=== PATIENT | female | born 1935 | race Caucasian/White ===

== ENCOUNTER 2024-10-05 18:41 | Emergency (ER) | payer MEDICARE, BC, SELFPAY ==
[2024-10-05 19:30] VITALS: BP 121/58; PULSE 58; RESP 19; TEMP 36.6; O2SAT 100; BMI 20.2
[2024-10-05 19:51] LABS: Basophils % (Auto) 1 % (0-2.5); Eosinophils # (Auto) 0.1 Thou/mm3 (0.0-0.5); Eosinophils % (Auto) 2 % (0-10); Hematocrit 24.8 % (36.0-46.0); Hemoglobin 7.8 g/dL (12.0-16.0); Immature Granulocytes % (Auto) 1 % (0-0); Immature Granulocytes Auto 0.06 Thou/mm3 (0.00-0.00); Lymphocytes # (Auto) 1.4 Thou/mm3 (1.0-4.8); Lymphocytes % (Auto) 18 % (10-50); Mean Corpuscular HGB Conc 31.5 g/dl (31.0-37.0); Mean Corpuscular Hemoglobin 29.9 pg (25.0-35.0); Mean Corpuscular Volume 95 fL (80-100); Monocytes # (Auto) 0.6 Thou/mm3 (0.0-0.8); Monocytes % (Auto) 7 % (0-12); Neutrophils # (Auto) 5.5 Thou/mm3 (1.8-7.7); Neutrophils % (Auto) 71 % (37-80); Nucleated Red Blood Cell % 0 /100 WBC (0); Platelet Count 337 Thou/mm3 (140-440); RDW Standard Deviation 56.2 fL (36.4-46.3); Red Blood Count 2.61 Miln/mm3 (4.00-5.20); White Blood Count 7.7 Thou/mm3 (3.6-11.0)
[2024-10-05 20:07] LABS: Alanine Aminotransferase < 7 U/L (10-49); Albumin, Serum 3.9 gm/dL (3.4-4.8); Alkaline Phosphatase 183 U/L (46-116); Anion Gap 9 (7-16); Aspartate Amino Transferase 67 U/L (0-34); BUN/Creatinine Ratio 34 Ratio (12-20); Bilirubin,Total 0.5 mg/dL (0.3-1.2); Blood Urea Nitrogen 48 mg/dL (9-23); Calcium 8.6 mg/dL (8.3-10.6); Calcium (Corrected) 8.7 mg/dL (8.5-10.1); Carbon Dioxide 19.3 mMol/L (20.0-31.0); Chloride 113 mMol/L (98-107); Creatinine (Component) 1.4 mg/dL (0.6-1.3); Estimated Creatinine Clearance 18.6 mL/min (>60); Glucose 117 mg/dL (74-106); Magnesium 2.1 mg/dL (1.6-2.6); Osmolality,Calculated 294 (275-295); Potassium 4.2 mMol/L (3.4-5.1); Sodium 141 mMol/L (136-145); Total Protein 5.9 gm/dL (5.7-8.2); eGFR 36 See Note
[2024-10-05 20:39] LABS: Collection Type, Urine Clean Catch; Squamous Epithelial Cell,Urine 0 /hpf (0-5)
[2024-10-05 20:57] LABS: Bilirubin,Urine Negative (Negative); Blood,Urine 3+ (Negative); Clarity,Urine Turbid (Clear/Hazy); Color,Urine Yellow (Lt Yel-Yel); Glucose, Urine Negative (Negative); Ketones,Urine Negative (Negative); Leukocyte Esterase,Urine Positive (Negative); Nitrite,Urine Positive (Negative); Protein,Urine 1+ (Neg - Trace); RBC,Urine 1181 /hpf (0-3); Specific Gravity,Urine 1.013 (1.001-1.035); Urobilinogen,Urine Negative mg/dL (0.0-1.0); WBC,Urine 130 /hpf (0-5)
--- NOTE | 2024-10-05 21:39 | PD.EDFMALE ---
ED Female Urogenital RME/HPI General Chief complaint: Urogenital-Female Stated complaint: BLOOD IN UROSTOMY BAG PER FAMILY Time Seen by Provider: 10/05/24 18:50 Arrival date/time: 10/05/24 18:41 RME / HPI RME / HPI Narrative: This section includes all my notes and documentations, including HPI, PE, and ED course. Nicholas Tanner MD HPI: 89-year-old female here to be evaluated with several days of blood in the urine. Family is present. Concerned due to severe anemia in the past needing blood transfusion. No fever or chills. No nausea or vomiting. Eating well. No unusual fatigue or malaise. No chest pain. No other complaints. ROS: Gastrointestinal: negative except as documented in HPI. Genitourinary: negative except as documented in HPI. Musculoskeletal: negative except as documented in HPI. Skin: negative except as documented in HPI. Neurological: negative except as documented in HPI. Physical Exam: General: Alert. No acute distress. Eyes: Conjunctivae and lids clear. ENT: No nasal congestion. Neck: Supple. Heart: RRR. Lungs: No respiratory distress. Good air movement. No rhonchi, wheezing, rales. Abdomen: Soft and nontender. Normal bowel sounds. No distension. No rebound or guarding. Skin: Warm and dry. Neuro: Alert and oriented X 1. Cranial Nerves II-XII grossly intact. No peripheral motor deficits. Blood tests and urine tests remarkable for Hgb 7.8 and hematuria. Will wait for urine culture. Recommended more care with PCP. Based on my best medical judgment, made decision no further evaluation or treatment indicated at this time.? Patient (and family) understands and agrees to the discharge instructions customized and printed, see below. Discharge instructions from Dr. Tanner: 1. After evaluation, we have severe anemia. Hemoglobin was 7.8 today. Blood transfusion is needed if hemoglobin < 7. 2. And there is a lot of blood in the urine. 3. See a private doctor on 10/07/2024 for recheck. Ask to review all test results, to make sure you receive all necessary follow-ups and monitoring, including urine culture results from today and repeat hemoglobin level. Ask for help figure out the cause of the severe anemia and blood in the urine. Will need more workup, including referrals to see specialists such as urologist and chief accountant. 4. Seek immediate medical care with worsening or with any concerns. Nicholas Tanner MD Related Data Home Medications ?Medication ?Instructions ?Recorded ?Confirmed amlodipine 5 mg tablet 5 mg PO BID 10/28/23 04/15/24 pantoprazole 40 mg tablet,delayed 40 mg PO QDAY 10/28/23 04/15/24 release calcitriol 0.25 mcg capsule See Rx Instructions .Route .COMPLEX 04/15/24 04/15/24 ferrous sulfate 220 mg (44 mg 220 mg PO BID 04/15/24 04/15/24 iron)/5 mL oral elixir hydrochlorothiazide 25 mg tablet 35 mg PO BID 04/15/24 04/15/24 Previous Rx's ?Medication ?Instructions ?Recorded atorvastatin 80 mg tablet 80 mg PO HS #90 tabs 08/08/23 clopidogrel 75 mg tablet 75 mg PO QDAY #90 tabs 08/08/23 Allergies Allergy/AdvReac Type Severity Reaction Status Date / Time No Known Allergies Allergy Verified 10/05/24 18:42 Course Quality Measures none Orders Category Date Time Status CBC Stat Lab 10/05/24 19:30 Completed CMP [Comprehensive Metabolic Panel] Stat Lab 10/05/24 19:30 Completed Magnesium Stat Lab 10/05/24 19:30 Completed UA [Urinalysis] Stat Lab 10/05/24 20:30 Completed Urine Culture Stat Lab 10/05/24 21:40 Ordered Vital Signs Vital signs: Vital Signs Temperature 97.8 F 10/05/24 19:30 Pulse Rate 58 L 10/05/24 19:30 Respiratory Rate 19 10/05/24 19:30 Blood Pressure 121/58 L 10/05/24 19:30 Pulse Oximetry (%) 100 10/05/24 19:30 Oxygen Delivery Method Room Air 10/05/24 19:30 Urogenital - Female Patient data External records reviewed:: [facility] previous records Clinical information provided by:: patient and family Social determinants that could affect healthcare access:: none Patient has the following chronic illnesses:: See chart How is presenting disease/condition affected by chronic disease/condition?: exacerbated by Evaluation data The following diagnostics were reviewed and interpreted by me:: lab results Lab and/or radiology exams considered but not ordered:: None Interpretation Summary: Anemia and hematuria Medications / Prescriptions Medications or Prescriptions considered but not ordered:: None Medication administrations:: None Consultations Consultation(s) initiated? (list below): No Diagnosis Urogenital Female Differential Diagnosis: urinary tract infection and cystitis Most likely diagnosis given after review of the tests above:: Anemia and UTI Admission Indicated Admission indicated?: not indicated Explain why admission is indicated or not indicated:: No admission criteria Admission Request Was there a request for admission?: No Disposition Plan Disposition Plan: Discharge Discharge Attestation Discharge Attestation: The patient and all family members were given an opportunity to ask questions and understood the discharge instructions. Discharge instructions specifically effects, indications for sooner follow up or return to the emergency department, and the expected course of current diagnosis. Patient condition: Stable Discharge Plan Plan Patient Disposition: HOME (Self Care) Prescriptions/Referrals Prescriptions/Med Rec: No Action amlodipine 5 mg Tablet 5 mg PO BID pantoprazole 40 mg tablet,delayed release (DR/EC) 40 mg PO QDAY clopidogrel 75 mg Tablet 75 mg PO QDAY Qty: 90 0RF atorvastatin 80 mg tablet 80 mg PO HS Qty: 90 0RF ferrous sulfate 220 mg (44 mg iron)/5 mL elixir 220 mg PO BID Patient Comments: TAKE 5 ML BY MOUTH TWICE DAILY calcitriol 0.25 mcg capsule See Rx Instructions .ROUTE .COMPLEX Patient Comments: TAKE 1 CAPSULE BY MOUTH 3 TIMES WEEKLY Rx Instructions: 0.25 mcg orally hydrochlorothiazide 25 mg tablet 35 mg PO BID Patient Comments: TAKE 1 TABLET BY MOUTH TWICE DAILY Referrals: Flavio August MD [Primary Care Provider] - In 1 week Problem List Clinical Impression: Severe anemia, Hematuria Patient/Caregiver Discharge Instructions Discharge Activity: activity as tolerated Education Materials: ED Anemia Type Not Specified, ED Hematuria Additional Instructions: Discharge instructions from Dr. Tanner: 1. After evaluation, we have severe anemia. Hemoglobin was 7.8 today. Blood transfusion is needed if hemoglobin < 7. 2. And there is a lot of blood in the urine. 3. See a private doctor on 10/07/2024 for recheck. Ask to review all test results, to make sure you receive all necessary follow-ups and monitoring, including urine culture results from today and repeat hemoglobin level. Ask for help figure out the cause of the severe anemia and blood in the urine. Will need more workup, including referrals to see specialists such as urologist and chief accountant. 4. Seek immediate medical care with worsening or with any concerns. Print Language: Setswana Stand Alone Forms: [employer] Award Info., Patient Portal Info Letter
[2024-10-05 21:46] VITALS: BP 112/53; PULSE 60; RESP 18; TEMP 37.2; O2SAT 99
== END 2024-10-05 21:47 | disposition home or self-care (01) ==
PROVIDERS: Emergency Provider Emergency Medicine; PCP Internal Medicine
DX: D64.9 Anemia, unspecified (principal); R31.9 Hematuria, unspecified
CPT/HCPCS: 36415; 80053; 81001; 83735; 85025; 87086; 99283

== ENCOUNTER 2024-11-04 17:28 | Inpatient (IN) | payer MEDICARE, BC, SELFPAY ==
[2024-11-04] VITALS (10 sets, daily range): BP systolic 112–135; BP diastolic 42–60; PULSE 53–76; RESP 17–25; TEMP 36.7–37; O2SAT 88–99
--- NOTE | 2024-11-04 18:46 | XR_ITS ---
Examination: AP chest single view Technique: AP portable sitting chest single view Exam date and time: November 04, 2024 1905 hrs. Comparison May 31, 2024 Indications: Shortness of breath today Findings: Prominent CHF Enlarged cardiac contour with prominent vascular congestion and extensive perihilar edema Transvenous dual-chamber bipolar cardiac leads stable position Severe thoracolumbar dextroscoliosis IVC filter Severe osteopenia Impression: Prominent CHF Consider superimposed pneumonia right lung
--- NOTE | 2024-11-04 18:46 | EKG_ITS ---
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
[2024-11-04] MEDS: FUROSEMIDE INJ 10 MG/ML 4ML VIAL 20 MG IVP (19:01)
[2024-11-04] MEDS: NITROGLYCERIN OINT 2% 1 INCH PACKET 0.5 INCH TOP (19:03)
[2024-11-04] MEDS: MORPHINE SULF INJ 10 MG/ML VIAL IVP (19:04)
--- NOTE | 2024-11-04 19:05 | EDNOTE_ITS ---
ED SOB =RME/HPI General Chief Complaint: Shortness of Breath/Dyspnea Stated Complaint: SHORTNESS OF BREATH Time Seen by Provider: 11/04/24 18:38 Arrival date/time: 11/04/24 17:28 RME / HPI RME / HPI Narrative: This section includes all my notes and documentations, including HPI, PE, and ED course. Nicholas Tanner MD HPI: 89-year-old female here to be evaluated with multiple concerns. Great niece who is her career development facilitator is present. They report several days of worsening cough and shortness of breath. No productive cough. No obvious fever. And worsening generalized weakness and fatigue and malaise. No other complaints. ROS: All negative except as documented in HPI. Physical Exam: General: Alert and oriented. Appears malaise noted. Patient is hypoxic needing oxygen. Eyes: Conjunctivae and lids clear. EOMI. PERRL. ENT: No nasal congestion. Pharynx normal. Tympanic membrane normal bilaterally. Neck: Supple. No carotid bruit. No JVD. Heart: RRR. Lungs: Mild respiratory distress. Moderately decreased air movement with rales. Abdomen: Soft and nontender. Normal bowel sounds. No distension. No rebound or guarding. Back: No CVA tenderness. Legs: No clubbing, cyanosis, edema. Skin: Warm and dry. Neuro: Alert and oriented X 3. Cranial Nerves II-XII grossly intact. No peripheral motor deficits. I reviewed all diagnostic test results. My interpretation of the EKG is paced rhythm. My interpretation of the chest x-ray is increased vascular congestion and infiltrates. My review of the chest CT report is pleural effusions and pneumonia and metastatic bone disease. Blood tests remarkable for Hgb 5.3, D-dimer > 3820, Cr 1.2, BNP 388. UA showed leukocyte esterase, RBC, WBC, bacteria, and yeast. At this point, diagnoses include: Acute respiratory failure with hypoxia, Pneumonia, CHF (congestive heart failure), Severe anemia, Metastasis to bone, Bacterial UTI, Yeast UTI Treatment here included oxygen and Lasix and morphine and topical NTG and Rocephin and Zithromax. Significant improvement not noted. I discussed the case with Dr. August. About the presentation and exam and diagnostics and treatments here. And need of further care in the hospital. Will accept the patient. Nicholas Tanner MD Related Data Home Medications ?Medication ?Instructions ?Recorded ?Confirmed amlodipine 5 mg tablet 5 mg PO BID 10/28/23 04/15/24 pantoprazole 40 mg tablet,delayed 40 mg PO QDAY 10/28/23 04/15/24 release calcitriol 0.25 mcg capsule See Rx Instructions .Route .COMPLEX 04/15/24 04/15/24 ferrous sulfate 220 mg (44 mg 220 mg PO BID 04/15/24 04/15/24 iron)/5 mL oral elixir hydrochlorothiazide 25 mg tablet 35 mg PO BID 04/15/24 04/15/24 Previous Rx's ?Medication ?Instructions ?Recorded atorvastatin 80 mg tablet 80 mg PO HS #90 tabs 08/08/23 clopidogrel 75 mg tablet 75 mg PO QDAY #90 tabs 08/08/23 Allergies Allergy/AdvReac Type Severity Reaction Status Date / Time No Known Allergies Allergy Verified 10/05/24 18:42 Course Quality Measures none Orders Category Date Time Status Bedside COVID-19 Antigen Test NOW Care 11/04/24 18:46 Active Bedside Influenza A&B Antigen Test NOW Care 11/04/24 18:46 Completed COVID-19 Screening Questionnaire NOW Care 11/05/24 03:23 Active Decision to Admit X1 Care 11/05/24 03:23 Active EKG (ED ONLY) *Do not use* NOW Care 11/04/24 18:46 Completed Saline [Insert IV] NOW Care 11/04/24 18:44 Active Transfuse,blood/blood products NOW Care 11/04/24 20:[address] angio chest abdomen pelvis Stat Exams 11/04/24 20:17 Taken EKG (ED Only) Stat Exams 11/04/24 18:46 Draft XR chest 1V portable Stat Exams 11/04/24 18:46 Completed ABG [Arterial Blood Gas] Stat Lab 11/04/24 20:33 Completed BNP [B-Type Natriuretic Peptide] Stat Lab 11/04/24 19:12 Completed CBC Stat Lab 11/04/24 19:12 Completed CMP [Comprehensive Metabolic Panel] Stat Lab 11/04/24 19:12 Completed D-Dimer Stat Lab 11/04/24 19:12 Completed Magnesium Stat Lab 11/04/24 19:12 Completed Troponin I Stat Lab 11/04/24 19:12 Completed Type and Screen Stat Lab 11/04/24 20:50 Completed UA, C/S IF [Urinalysis, C/S if Indicated] Stat Lab 11/04/24 19:15 Completed Urine Culture Stat Lab 11/04/24 19:15 Received prbc [Red Blood Cells] Stat Lab 11/04/24 20:50 Completed Furosemide Inj [Lasix Inj] Med 11/04/24 18:44 Discontinued 20 mg IVP X1 ONE Morphine Inj Med 11/04/24 18:44 Discontinued 1 mg IVP X1 ONE Nitroglycerin Oint 2% [Nitro-paste Oint 2%] Med 11/04/24 18:44 Discontinued 0.5 inch TOP X1 ONE cefTRIAXone/D5w 1gm IV premix [Rocephin/D5w 1gm IV Med 11/04/24 20:16 Discontinued premix] 50 ml IV X1 Vital Signs Vital signs: Vital Signs Temperature 98.6 F 11/04/24 18:00 Pulse Rate 62 11/04/24 18:00 Respiratory Rate 19 11/04/24 18:00 Blood Pressure 135/58 H 11/04/24 18:00 Pulse Oximetry (%) 98 11/04/24 18:00 Oxygen Delivery Method Nasal Cannula 11/04/24 18:00 Shortness of Breath / Dyspnea Patient data External records reviewed:: [facility] previous records and EMS form Clinical information provided by:: patient, EMS and family Social determinants that could affect healthcare access:: none Patient has the following chronic illnesses:: See chart How is presenting disease/condition affected by chronic disease/condition?: exacerbated by Evaluation data The following diagnostics were reviewed and interpreted by me:: lab results, radiology exam(s) and EKG tracing(s) (Paced rhythm (68 bpm). Nicholas Tanner MD) Lab and/or radiology exams considered but not ordered:: None Interpretation Summary: Acute respiratory failure with hypoxia, Pneumonia, CHF (congestive heart failure), Severe anemia, Metastasis to bone, Bacterial UTI, Yeast UTI Medications / Prescriptions Medications or Prescriptions considered but not ordered:: None Medication administrations:: Medication Administration History Discontinued Medications Furosemide (Furosemide Inj 10 Mg/Ml 4ml Vial) 20 mg IVP X1 ONE Stop: 11/04/24 18:45 Last Admin: 11/04/24 19:01 Dose: 20 mg Documented By: RIYA Ceftriaxone Sodium/Dextrose (Rocephin/D5w 1gm Iv Premix) 50 mls @ 100 mls/hr IV X1 ONE Stop: 11/04/24 20:45 Last Infusion: 11/04/24 22:27 Dose: Infused Documented By: Admin: 11/04/24 21:46 Dose: 100 mls/hr Documented By: KATHARINE Morphine Sulfate (Morphine Sulf Inj 10 Mg/Ml Vial) 1 mg IVP X1 ONE Stop: 11/04/24 18:45 Last Admin: 11/04/24 19:04 Dose: 1 mg Documented By: RIYA Nitroglycerin (Nitroglycerin Oint 2% 1 Inch Packet) 0.5 inch TOP X1 ONE Stop: 11/04/24 18:45 Last Admin: 11/04/24 19:03 Dose: 0.5 inch Documented By: RIYA Lasix and morphine and topical NTG and Rocephin and Zithromax and oxygen Consultations Consultation(s) initiated? (list below): No Diagnosis Shortness of Breath Differential Diagnosis: acute exacerbation of chronic obstructive airways disease, congestive heart failure, community acquired pneumonia, asthma with exacerbation and pulmonary embolism Most likely diagnosis given after review of the tests above:: Acute respiratory failure with hypoxia, Pneumonia, CHF (congestive heart failure), Severe anemia, Metastasis to bone, Bacterial UTI, Yeast UTI Admission Indicated Admission indicated?: indicated Explain why admission is indicated or not indicated:: Acute respiratory failure with hypoxia, Pneumonia, CHF (congestive heart failure), Severe anemia, Metastasis to bone, Bacterial UTI, Yeast UTI Admission Request Was there a request for admission?: Yes Admission Attestation Admission request attestation: Discussed case with Dr. August service regarding admission. Discussed patients ED course, exam findings, labs, and radiology results. The Hospitalist [agrees,declines] to accept the patient for admission. Disposition Plan Disposition Plan: Admit Critical Care Time Critical Care Time Critical Care Time: Yes Total Critical Care Time (min.): 36 Attestation: Due to a high probability of clinically significant, life threatening dete rioration, the patient required my highest level of preparedness to intervene emergently and I personally spent this critical care time directly and personally managing the patient. This critical care time included obtaining a history; examining the patient; ordering and review of studies; arranging urgent treatment with development of a management plan; evaluation of patient's response to treatment; frequent reassessment; and discussions with family and other providers. It was exclusive of separately billable procedures and treating other patients and teaching time. Nicholas Tanner MD Discharge Plan Plan Patient Disposition: Admit Acute Care w/in Hospital Prescriptions/Referrals Prescriptions/Med Rec: No Action amlodipine 5 mg Tablet 5 mg PO BID pantoprazole 40 mg tablet,delayed release (DR/EC) 40 mg PO QDAY clopidogrel 75 mg Tablet 75 mg PO QDAY Qty: 90 0RF atorvastatin 80 mg tablet 80 mg PO HS Qty: 90 0RF ferrous sulfate 220 mg (44 mg iron)/5 mL elixir 220 mg PO BID Patient Comments: TAKE 5 ML BY MOUTH TWICE DAILY calcitriol 0.25 mcg capsule See Rx Instructions .ROUTE .COMPLEX Patient Comments: TAKE 1 CAPSULE BY MOUTH 3 TIMES WEEKLY Rx Instructions: 0.25 mcg orally hydrochlorothiazide 25 mg tablet 35 mg PO BID Patient Comments: TAKE 1 TABLET BY MOUTH TWICE DAILY Referrals: Flavio August MD [Primary Care Provider] - In 1 week Problem List Clinical Impression: Acute respiratory failure with hypoxia, Pneumonia, CHF (congestive heart failure), Severe anemia, Metastasis to bone, Bacterial UTI, Yeast UTI Patient/Caregiver Discharge Instructions Print Language: Arabic Stand Alone Forms: [employer] Award Info., Patient Portal Info Letter
[2024-11-04 19:20] LABS: Basophils % (Auto) 0 % (0-2.5); Eosinophils # (Auto) 0.1 Thou/mm3 (0.0-0.5); Eosinophils % (Auto) 1 % (0-10); Immature Granulocytes % (Auto) 3 % (0-0); Immature Granulocytes Auto 0.29 Thou/mm3 (0.00-0.00); Lymphocytes # (Auto) 1.2 Thou/mm3 (1.0-4.8); Lymphocytes % (Auto) 15 % (10-50); Mean Corpuscular HGB Conc 30.1 g/dl (31.0-37.0); Mean Corpuscular Hemoglobin 31.2 pg (25.0-35.0); Mean Corpuscular Volume 104 fL (80-100); Monocytes # (Auto) 0.6 Thou/mm3 (0.0-0.8); Monocytes % (Auto) 7 % (0-12); Neutrophils # (Auto) 6.3 Thou/mm3 (1.8-7.7); Neutrophils % (Auto) 74 % (37-80); Nucleated Red Blood Cell # 0.14 Thou/mm3 (0.00-0.00); Nucleated Red Blood Cell % 2 /100 WBC (0); Platelet Count 289 Thou/mm3 (140-440); RDW Standard Deviation 71.7 fL (36.4-46.3); White Blood Count 8.6 Thou/mm3 (3.6-11.0)
[2024-11-04 19:28] LABS: Hematocrit 17.6 % (36.0-46.0); Hemoglobin 5.3 g/dL (12.0-16.0)
--- NOTE | 2024-11-04 19:33 | PC.NURSE ---
O2 AT 2L VIA NC APPLIED. O2 SAT INCREASED TO 97-98%
--- NOTE | 2024-11-04 19:34 | PC.NURSE ---
1800 PATIENT AWAKE AND ALERT. NO DISTRESS OBSERVED. UROSTOMY TO RT MID ABD OBSERVED WITH CLEAR YELLOW URINE DRAINING. FAMILY AT BEDSIDE.
[2024-11-04 19:44] LABS: B-Type Natriuretic Peptide 388 pg/mL (0-100)
[2024-11-04 19:46] LABS: Alanine Aminotransferase 8 U/L (10-49); Albumin, Serum 3.3 gm/dL (3.4-4.8); Albumin/Globulin Ratio 1.7 (1.2-2.2); Alkaline Phosphatase 160 U/L (46-116); Anion Gap 10 (7-16); Aspartate Amino Transferase 147 U/L (0-34); BUN/Creatinine Ratio 36 Ratio (12-20); Bilirubin,Total 0.4 mg/dL (0.3-1.2); Blood Urea Nitrogen 43 mg/dL (9-23); Calcium 8.6 mg/dL (8.3-10.6); Calcium (Corrected) 9.2 mg/dL (8.5-10.1); Carbon Dioxide 19.3 mMol/L (20.0-31.0); Chloride 115 mMol/L (98-107); Creatinine (Component) 1.2 mg/dL (0.6-1.3); Globulin 1.9 gm/dL (2.3-3.5); Glucose 108 mg/dL (74-106); Magnesium 2.2 mg/dL (1.6-2.6); Osmolality,Calculated 298 (275-295); Potassium 4.6 mMol/L (3.4-5.1); Sodium 144 mMol/L (136-145); Total Protein 5.2 gm/dL (5.7-8.2); Troponin I 0.025 ng/mL (0.0-0.045); eGFR 43 See Note
[2024-11-04 19:49] LABS: D-Dimer > 3820 ng/mL (<600)
[2024-11-04 19:51] LABS: Collection Type, Urine Clean Catch
[2024-11-04 20:11] LABS: Bacteria,Urine Rare; Bilirubin,Urine Negative (Negative); Blood,Urine Trace (Negative); Budding Yeast,Urine Present; Clarity,Urine Turbid (Clear/Hazy); Color,Urine Lt-Yellow (Lt Yel-Yel); Culture Indicated,Urine Yes; Glucose, Urine Negative (Negative); Hyaline Casts,Urine < 1 /hpf (0-1); Ketones,Urine Negative (Negative); Leukocyte Esterase,Urine Positive (Negative); Nitrite,Urine Negative (Negative); Protein,Urine Negative (Neg - Trace); RBC,Urine 8 /hpf (0-3); Specific Gravity,Urine 1.013 (1.001-1.035); Squamous Epithelial Cell,Urine < 1 /hpf (0-5); Urobilinogen,Urine Negative mg/dL (0.0-1.0); WBC,Urine 90 /hpf (0-5)
--- NOTE | 2024-11-04 20:17 | XR_ITS ---
Examination: CTA chest, with intravenous contrast. CTA abdomen, with intravenous contrast. CTA pelvis, with intravenous contrast. 2-D sagittal and coronal reconstructions. 3-D reconstructions. Date and time of exam: November 04, 2024 1144 hrs. Indications: Chest pain shortness of breath hypoxia with elevated d-dimer today, anemia CTDI vol (mgy) 18.48 DLP (MGycm) 776 Technique: Multiple CTA images, 2.0 mm slice thickness, obtained chest, abdomen, pelvis, with the high-resolution 64 slice scanner. 100 cc Isovue-370 is administered intravenously. Sagittal and coronal 2-D reconstructions are obtained. 3-D reconstructions, angiographic images are obtained. 3-D postprocessing, including vascular maximum intensity projections. Low dose protocols were performed. One or more of the following dose reduction techniques were used; automated exposure control, adjustment of the mA and/or KV according to patient size, use of iterative reconstruction technique. Findings: No thoracic aortic aneurysm dilatation No pulmonary artery emboli Moderate enlargement left atrium left ventricle Retrocardiac gastric hernia Moderate vascular congestion Lower lobe pneumonia Moderate right minimal left pleural effusions No focal liver lesions No gallstones Common bile duct 8 mm No pancreatic mass Mild bilateral hydronephrosis with mild wall thickening renal collecting systems IVC filter Urostomy with absent urinary bladder No pelvic mass Abundant stool in the rectum Widespread osteoblastic metastatic disease Impression: Negative for pulmonary artery emboli Bibasilar pneumonia Moderate right pleural effusion Extrahepatic biliary tract dilatation, recommend hepatobiliary sonography follow-up Suspicious for bilateral urinary tract infection Urostomy No pelvic mass Widespread osteoblastic metastatic disease
[2024-11-04 20:39] LABS: Base Excess -5 (-3-3); HCO3 19 mEq/L (20-26); Inspired Oxygen, FIO2 24 %; O2 Saturation 97 % (91-98); PCO2 31 mmHg (32.0-48.0); PO2 77 mmHg (83-108)
[2024-11-04 20:45] LABS: Allen Test Performed/OK; Puncture Site Right Radial
[2024-11-04] MEDS: cefTRIAXone/D5w 1gm IV premix 50 ML IV (21:46)
[2024-11-05] VITALS (22 sets, daily range): BP systolic 98–158; BP diastolic 46–94; PULSE 57–75; RESP 12–23; TEMP 36.6–37; O2SAT 96–100
--- NOTE | 2024-11-05 00:09 | PC.NURSE ---
pt went to CT with RN on monitor with no problems . First unit of blood is in process. p[t tolerating well.
[2024-11-05] MEDS: AZITHROMYCIN INJ 500 MG in SODIUM CHLORIDE 0.9% 250 ML 250 ML 250 MG IV (06:06)
--- NOTE | 2024-11-05 06:24 | PC.NURSE ---
pt has been sleeping most of the night. Tolerated Blood transfusions without difficulties. Pts color is good. Pt conversing and states she feels better. Spoke with pts daughter, who planns to be here [id number].
[2024-11-05] MEDS: FUROSEMIDE INJ 10 MG/ML 4ML VIAL 40 MG IVP (08:23)
[2024-11-05] MEDS: SODIUM BICARB INJ 8.4% 1 mEq/ML VIAL 50 ML 50 MEQ IV (08:23)
[2024-11-05] MEDS: cefTRIAXone/D5w 1gm IV premix 50 ML IV (08:24)
--- NOTE | 2024-11-05 09:58 | ESCONSULT_ITS ---
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 as well as bladder carcinoma requiring total cystectomy with creation of a urostomy I been consulted for a hemoglobin hematocrit of 5.3 and 17.6 No clear history of [facility] bleeding in the form of hematemesis melena or hematochezia I have known this patient for before and on 04/16/2024 she underwent upper endoscopy Which showed large gastric hiatal hernia one third of her stomach is sitting in the chest She also had a proximal esophageal stricture requiring endoscopic guidewire savory dilatation with German 45 and 54 savory dilators and did relatively well postprocedure However my suspicion was she might be having obstruction due to the hiatal hernia as well He was not considered a surgical candidate by me at that time because of her extensive cardiac history Today CT scan of the chest abdomen pelvis with contrast showed no pulmonary embolism bibasilar pneumonia gastric hiatal hernia common bile duct 8 mm with some extrahepatic biliary dilatation no gallstones urostomy and no urinary bladder seen Widespread osteoblastic metastasis cc:: cc: Flavio Auugst MD Review of Systems Review of Systems Systems Reviewed: All systems reviewed, normal except as documented Past Medical History Surgical History OTHER SURGICAL HX: As in the history of present illness Meds Home Medications and Allergies Home Medications ?Medication ?Instructions ?Recorded ?Confirmed ?Type amlodipine 5 mg tablet 5 mg PO BID 10/28/23 04/15/24 History pantoprazole 40 mg tablet,delayed 40 mg PO QDAY 10/28/23 04/15/24 History release calcitriol 0.25 mcg capsule See Rx Instructions .Route .COMPLEX 04/15/24 04/15/24 History ferrous sulfate 220 mg (44 mg 220 mg PO BID 04/15/24 04/15/24 History iron)/5 mL oral elixir hydrochlorothiazide 25 mg tablet 35 mg PO BID 04/15/24 04/15/24 History Allergies Allergy/AdvReac Type Severity Reaction Status Date / Time No Known Allergies Allergy Verified 10/05/24 18:42 Exam Vital Signs Temp Pulse Resp BP Pulse Ox O2 Del Method O2 Flow Rate 98.5 F 63 16 116/78 99 Nasal Cannula 2 11/05/24 07:57 11/05/24 08:23 11/05/24 07:57 11/05/24 08:23 11/05/24 07:57 11/05/24 07:57 11/05/24 07:57 Routine Respiratory Exam Comments: Scattered rhonchi Routine Abdominal Exam Comments: Soft nontender Results Labs 11/04/24 19:12 11/04/24 19:12 Labs: Short CBC 11/04/24 Range/Units 19:12 WBC 8.6 (3.6-11.0) Thou/mm3 Hgb 5.3 L* (12.0-16.0) g/dL Hct 17.6 L* (36.0-46.0) % Plt Count 289 D (140-440) Thou/mm3 BMP 11/04/24 19:12 Sodium 144 Potassium 4.6 Chloride 115 H Carbon Dioxide 19.3 L BUN 43 H Creatinine 1.2 Glucose 108 H Calcium 8.6 Cardiac Enzymes 11/04/24 Range/Units 19:12 Troponin I 0.025 (0.0-0.045) ng/mL Liver Function 11/04/24 Range/Units 19:12 Total Bilirubin 0.4 (0.3-1.2) mg/dL AST 147 H (0-34) U/L ALT 8 L (10-49) U/L Alkaline Phosphatase 160 H (46-116) U/L Albumin 3.3 L (3.4-4.8) gm/dL Urine 11/04/24 Range/Units 19:15 Urine Color Lt-Yellow (Lt Yel-Yel) Urine Clarity Turbid A (Clear/Hazy) Urine pH 6.0 (5.0-7.0) Ur Specific Eden 1.013 (1.001-1.035) Urine Protein Negative (Neg - Trace) Urine Glucose (UA) Negative (Negative) ABG Interpretation ABG results: 11/04/24 20:33 ABG pH 7.40 ABG pCO2 31 L ABG pO2 77 L ABG HCO3 19 L ABG O2 Saturation 97 ABG Base Excess -5 L Assessment and Plan Additional Assessment & Plan Additional Plan: # Acute posthemorrhagic anemia with hemoglobin hematocrit eight 5.3 17.6 No evidence of any [facility] bleeding Patient may have occult GI bleeding on it may all be due to osteoblastic widespread bony metastatic disease as patient does have a history of bladder carcinoma requiring total cystectomy with urostomy Spoke with the great niece at the bedside in the emergency room Family does not want anything done I would just transfuse the patient no invasive GI workup planned Other medical problems include # Cardiac arrhythmias third-degree AV block requiring permanent cardiac pacemaker # Pulmonary artery disease status post PTCA # Congestive heart failure # Essential hypertension # Bladder carcinoma status post cystectomy and urostomy Thank you very much for the opportunity to participate in the care of this patient
--- NOTE | 2024-11-05 10:17 | PC.CC ---
Patient is a 89 year-old female who presents to the hospital with CHF Exacerbation & Pneumonia. Ldaan GREEN made [id number] contact with patient. ASW introduced self, role, and reason for visit. Patient appeared alert and oriented to self, location, and situation. Patient was in and out of sleep and provided consent for Niece, Michelle Perkins to complete assessment with ASW. Patient lives with her niece, Michelle as she is her full-time caregiver. Patient is not able to ambulate independently and uses a walker. The patient is full assist with her ADLs and her niece helps her complete her ADLs. The patient does not use oxygen at home; however has been on oxygen since coming to the hospital. Patient receives primary care with Dr. August and uses [facility] for any prescription medication. Patient does not currently have a POA but has an appointment on 11/10/2024 with her deputy county attorney to help complete a POA. Upon discharge [facility] and continuing to be her caregiver. field services manager to follow up with any discharge needs.
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
[2024-11-05 16:53] LABS: Basophils % (Auto) 0 % (0-2.5); Eosinophils # (Auto) 0.1 Thou/mm3 (0.0-0.5); Eosinophils % (Auto) 1 % (0-10); Hematocrit 27.9 % (36.0-46.0); Hemoglobin 9.1 g/dL (12.0-16.0); Immature Granulocytes % (Auto) 1 % (0-0); Immature Granulocytes Auto 0.08 Thou/mm3 (0.00-0.00); Lymphocytes # (Auto) 0.5 Thou/mm3 (1.0-4.8); Lymphocytes % (Auto) 6 % (10-50); Mean Corpuscular HGB Conc 32.6 g/dl (31.0-37.0); Mean Corpuscular Hemoglobin 31.1 pg (25.0-35.0); Mean Corpuscular Volume 95 fL (80-100); Monocytes # (Auto) 0.5 Thou/mm3 (0.0-0.8); Monocytes % (Auto) 5 % (0-12); Neutrophils # (Auto) 7.6 Thou/mm3 (1.8-7.7); Neutrophils % (Auto) 87 % (37-80); Nucleated Red Blood Cell # 0.07 Thou/mm3 (0.00-0.00); Nucleated Red Blood Cell % 1 /100 WBC (0); Platelet Count 250 Thou/mm3 (140-440); RDW Standard Deviation 58.8 fL (36.4-46.3); Red Blood Count 2.93 Miln/mm3 (4.00-5.20); White Blood Count 8.7 Thou/mm3 (3.6-11.0)
[2024-11-05] MEDS: AZITHROMYCIN 250 MG TABLET 500 MG PO (20:24)
[2024-11-06] VITALS: BP 119/74; PULSE 60; PULSE 61; RESP 12; TEMP 36.3; O2SAT 99
[2024-11-06 04:00] VITALS: BP 107/56; PULSE 65; PULSE 66; RESP 15; TEMP 36.2; O2SAT 97
[2024-11-06 06:42] LABS: Basophils % (Auto) 0 % (0-2.5); Eosinophils # (Auto) 0.2 Thou/mm3 (0.0-0.5); Eosinophils % (Auto) 3 % (0-10); Hematocrit 27.9 % (36.0-46.0); Hemoglobin 8.9 g/dL (12.0-16.0); Immature Granulocytes % (Auto) 1 % (0-0); Immature Granulocytes Auto 0.07 Thou/mm3 (0.00-0.00); Lymphocytes # (Auto) 0.5 Thou/mm3 (1.0-4.8); Lymphocytes % (Auto) 8 % (10-50); Mean Corpuscular HGB Conc 31.9 g/dl (31.0-37.0); Mean Corpuscular Hemoglobin 30.8 pg (25.0-35.0); Mean Corpuscular Volume 97 fL (80-100); Monocytes # (Auto) 0.4 Thou/mm3 (0.0-0.8); Monocytes % (Auto) 6 % (0-12); Neutrophils # (Auto) 4.9 Thou/mm3 (1.8-7.7); Neutrophils % (Auto) 81 % (37-80); Nucleated Red Blood Cell # 0.03 Thou/mm3 (0.00-0.00); Nucleated Red Blood Cell % 1 /100 WBC (0); Platelet Count 226 Thou/mm3 (140-440); RDW Standard Deviation 59.9 fL (36.4-46.3); Red Blood Count 2.89 Miln/mm3 (4.00-5.20)
[2024-11-06 06:54] LABS: Alanine Aminotransferase 9 U/L (10-49); Albumin, Serum 3.2 gm/dL (3.4-4.8); Albumin/Globulin Ratio 1.9 (1.2-2.2); Alkaline Phosphatase 151 U/L (46-116); Anion Gap 8 (7-16); Aspartate Amino Transferase 96 U/L (0-34); BUN/Creatinine Ratio 33 Ratio (12-20); Bilirubin,Total 0.4 mg/dL (0.3-1.2); Blood Urea Nitrogen 40 mg/dL (9-23); Calcium 8.2 mg/dL (8.3-10.6); Calcium (Corrected) 8.8 mg/dL (8.5-10.1); Chloride 109 mMol/L (98-107); Creatinine (Component) 1.2 mg/dL (0.6-1.3); Globulin 1.7 gm/dL (2.3-3.5); Glucose 97 mg/dL (74-106); Osmolality,Calculated 289 (275-295); Sodium 140 mMol/L (136-145); Total Protein 4.9 gm/dL (5.7-8.2); eGFR 43 See Note
[2024-11-06 08:00] VITALS: BP 119/59; PULSE 60; RESP 20; TEMP 36.3; O2SAT 99
[2024-11-06 09:05] VITALS: BP 119/59; PULSE 60
[2024-11-06] MEDS: cefTRIAXone/D5w 1gm IV premix 50 ML IV (09:05)
[2024-11-06] MEDS: FUROSEMIDE INJ 10 MG/ML 4ML VIAL 40 MG IVP (09:05)
[2024-11-06] MEDS: PANTOPRAZOLE INJ 40 MG VIAL IVP (10:17)
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
[2024-11-06 12:00] VITALS: BP 109/61; PULSE 63; RESP 20; TEMP 36.6; O2SAT 96
--- NOTE | 2024-11-06 12:13 | PC.NURSE ---
D/C orders placed, per MD hold the patient until PT consults, orders in place and PT notified.
--- NOTE | 2024-11-06 14:27 | PC.NURSE ---
Pt ambulated without oxygen and desaturated to 84% while ambulating. Patient came back up to 95% on 2L NC.
--- NOTE | 2024-11-06 15:00 | PC.SS ---
Bedside Commode Patient is physically incapable of utilizing regular toilet facilities because his or her diagnosis confines the patient to a single room. Patient is confined to a single level, and there is no toilet on that level; patient cannot access the toilet facilities in a timely manner due to lack of ambulation. OXYGEN Pt is discharged in a chronic stable state and has been treated optimally and has other respiratory needs. Oxygen has been ordered due to Congestive Heart Failure.
--- NOTE | 2024-11-06 15:04 | PC.SS ---
CLINICAL AUDITOR informed by bedside nurse that patient will require home oxygen upon discharge. CLINICAL AUDITOR submitted supporting documentation to Dr. Padilla's office for signature. Once signed documents obtained, DME referral will be generated via [facility].
--- NOTE | 2024-11-06 15:20 | PC.SS ---
PACKING LINE WORKER confirmed with patient's niece, Michelle Early; that family will provide transportation for the patient at the time of discharge. Bedside nurse notified.
[2024-11-06 16:00] VITALS: BP 118/58; PULSE 63; RESP 21; TEMP 36.6; O2SAT 94
--- NOTE | 2024-11-06 16:11 | PC.NURSE ---
Pt ambulated without oxygen and desaturated to 84% on room air while ambulating. Patient came back up to 95% on 2L NC.
--- NOTE | 2024-11-06 16:46 | ESPR_ITS ---
Documentation for date of: 11/06/24 Subjective Subjective Interval history: Patient evaluated She is more alert and oriented Talk to the grandniece Hemoglobin hematocrit after transfusion is 8.9 and 27.9 She was able to walk with the help of a physical therapy No invasive GI workup planned Exam Vital Signs Temp Pulse Resp BP Pulse Ox O2 Del Method O2 Flow Rate 97.9 F 63 20 109/61 96 Room Air 1 11/06/24 12:00 11/06/24 12:00 11/06/24 12:00 11/06/24 12:00 11/06/24 12:00 11/06/24 12:00 11/06/24 08:00 Routine Respiratory Exam Comments: Normal to auscultation Routine Abdominal Exam Comments: Soft nontender Objective Labs 11/06/24 05:10 11/06/24 05:10 Labs: Laboratory Results - last 24 hr 11/05/24 11/06/24 16:29 05:10 WBC 8.7 6.0 RBC 2.93 L 2.89 L Hgb 9.1 L D 8.9 L Hct 27.9 L D 27.9 L MCV 95 97 MCH 31.1 30.8 MCHC 32.6 31.9 RDW Std Deviation 58.8 H 59.9 H Plt Count 250 D 226 Neut % (Auto) 87 H 81 H Lymph % (Auto) 6 L 8 L Oliver % (Auto) 5 6 Eos % (Auto) 1 3 Baso % (Auto) 0 0 Neut # (Auto) 7.6 4.9 Lymph # (Auto) 0.5 L 0.5 L Oliver # (Auto) 0.5 0.4 Eos # (Auto) 0.1 0.2 Baso # (Auto) 0.0 0.0 Immature Gran # (Auto) 0.08 H 0.07 H Absolute Nucleated RBC 0.07 H 0.03 H Immature Gran % 1 H 1 H Nucleated RBC % 1 H 1 H Sodium 140 Potassium 4.0 D Chloride 109 H Carbon Dioxide 23.0 Anion Gap 8 BUN 40 H Creatinine 1.2 Estim Creat Clear Calc Not Performed. eGFR 43 L BUN/Creatinine Ratio 33 H Glucose 97 Calculated Osmolality 289 Calcium 8.2 L Corrected Calcium 8.8 Total Bilirubin 0.4 AST 96 H ALT 9 L Alkaline Phosphatase 151 H Total Protein 4.9 L Albumin 3.2 L Globulin 1.7 L Albumin/Globulin Ratio 1.9 Impressions Impression: # Acute posthemorrhagic anemia requiring blood transfusion Conservative management No plans for any invasive GI workup ABG Interpretation ABG results: 11/04/24 20:33 ABG pH 7.40 ABG pCO2 31 L ABG pO2 77 L ABG HCO3 19 L ABG O2 Saturation 97 ABG Base Excess -5 L Assessment & Plan A&P Narrative # Acute posthemorrhagic anemia with hemoglobin hematocrit eight 5.3 17.6 No evidence of any duke GI bleeding Patient may have occult GI bleeding on it may all be due to osteoblastic widespread bony metastatic disease as patient does have a history of bladder carcinoma requiring total cystectomy with urostomy Spoke with the great niece at the bedside in the emergency room Family does not want anything done I would just transfuse the patient no invasive GI workup planned Other medical problems include # Cardiac arrhythmias 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
== END 2024-11-06 18:12 | disposition home or self-care (01) | DRG 811 ==
LOC: SERX 11-05 03:26 → SERHOLD 11-05 07:39 → S2NX 11-05 17:14
PROVIDERS: Admitting Provider Internal Medicine; Emergency Provider Emergency Medicine; PCP Internal Medicine; Visit Provider Internal Medicine
DX: D62 Acute posthemorrhagic anemia (principal); J18.9 Pneumonia, unspecified organism; J96.01 Acute respiratory failure with hypoxia; C79.51 Secondary malignant neoplasm of bone; N17.9 Acute kidney failure, unspecified; B37.49 Other urogenital candidiasis; I44.2 Atrioventricular block, complete; I50.9 Heart failure, unspecified; I11.0 Hypertensive heart disease with heart failure; C67.9 Malignant neoplasm of bladder, unspecified; E78.5 Hyperlipidemia, unspecified; I25.10 Atherosclerotic heart disease of native coronary artery without angina pectoris; Z95.0 Presence of cardiac pacemaker; Z95.5 Presence of coronary angioplasty implant and graft; Z85.51 Personal history of malignant neoplasm of bladder; Z85.3 Personal history of malignant neoplasm of breast
CPT/HCPCS: 36415; 36430; 36600; 71045; 71275; 74174; 80053; 81001; 82803; 83735; 83880; 84484; 85025; 85379; 86850; 86900; 86901; 86921; 86922; 87086; 87400; 87811; 93005; 96365; 96375; 97162; 99285; A4649; J0456; J0696; J1940; J2270; J2470; J7050; P9016; Q9967; A9270

== ENCOUNTER 2024-11-26 18:21 | Emergency (ER) | payer MEDICARE, BC, SELFPAY ==
[2024-11-26 18:34] VITALS: PULSE 72; RESP 18; O2SAT 90; BMI 19.5
[2024-11-26 18:53] VITALS: BP 128/58; PULSE 64; RESP 18; TEMP 36.7; O2SAT 99
--- NOTE | 2024-11-26 19:34 | PD.EDADULT ---
ED General RME/HPI General Chief complaint: Weakness Stated complaint: WEAKNESS Time Seen by Provider: 11/26/24 19:19 Arrival date/time: 11/26/24 18:21 RME / HPI RME / HPI narrative: 89 y/o F with PMHx of Hypertension, Coronary artery disesae s/p stent placement, CHF, AV-block s/p pacemaker, bladder cancer s/p urostomy bag, was brought to us by EMS from home for evaluation regarding generalized body weakness. According to the patient patient came in because he needed a blood transfusion. Patient is alert and oriented x 3, and denies any complaints. Related Data Home Medications ?Medication ?Instructions ?Recorded ?Confirmed amlodipine 5 mg tablet 5 mg PO BID 10/28/23 11/06/24 pantoprazole 40 mg tablet,delayed 40 mg PO QDAY 10/28/23 04/15/24 release calcitriol 0.25 mcg capsule See Rx Instructions .Route .COMPLEX 04/15/24 11/06/24 ferrous sulfate 220 mg (44 mg 220 mg PO BID 04/15/24 04/15/24 iron)/5 mL oral elixir aspirin 81 mg tablet,delayed 81 mg PO QDAY 11/06/24 11/06/24 release azilsartan medoxomil 80 mg tablet 80 mg PO QDAY 11/06/24 11/06/24 (Edarbi) bisacodyl 5 mg tablet,delayed 5 mg PO Q72H 11/06/24 11/06/24 release (Dulcolax (bisacodyl)) clopidogrel 75 mg tablet 75 mg PO HS 11/06/24 11/06/24 sodium bicarbonate 325 mg tablet 325 mg PO QDAY 11/06/24 11/06/24 Previous Rx's ?Medication ?Instructions ?Recorded atorvastatin 80 mg tablet 80 mg PO HS #90 tabs 08/08/23 amoxicillin 500 mg-potassium 1 tab PO BID #10 tabs 11/06/24 clavulanate 125 mg tablet (Augmentin) hydrochlorothiazide 25 mg tablet 25 mg PO DAILY #30 tabs 11/06/24 cefuroxime axetil 500 mg tablet 500 mg PO BID #14 tabs 11/26/24 Allergies Allergy/AdvReac Type Severity Reaction Status Date / Time No Known Allergies Allergy Verified 10/05/24 18:42 Review of Systems Review of Systems Narrative Review of Systems: Review of system reviewed and within normal limits except mentioned in HPI ED Exam Narrative Physical exam: VITAL SIGNS: Reviewed. GENERAL APPEARANCE: Alert and interactive, follows commands, no acute distress, HEAD AND FACE: Non-traumatic. ENT: PERRL, pink conjunctivitis, eyelid no trauma, Mucous membrane moist. NECK: Supple, nontender, no nuchal rigidity. CHEST: No tenderness, no crepitus, no paradoxical movement, no retractions. LUNGS: Clear, well ventilated, symmetric, no rales, no wheezing, no ronchi, no stridor, good breath sounds bilaterally. HEART: Regular rate, regular rhythm, no murmur, no gallops. ABDOMEN: Soft, positive bowel sounds, nondistended, no guarding, nontender, no rebound, no masses, RECTAL: Deferred. GENITAL: Santana catheter intact, draining well NEUROLOGICAL: Gross motor function intact sensory function intact, Appropriate for age. MUSCULOSKELETAL: low back nontender, full range of motion. EXTREMITIES: Nontender, full range of motion. SKIN: Color pink, dry, no rash, no lacerations, no abrasions, no contusions. LYMPHATICS: Deferred. Course Quality Measures none Orders Category Date Time Status EKG (ED ONLY) *Do not use* NOW Care 11/26/24 19:38 Completed EKG (ED Only) Stat Exams 11/26/24 19:38 Draft XR lumbar spine 2-3V Stat Exams 11/26/24 20:44 Completed XR pelvis 1-2V Stat Exams 11/26/24 20:44 Completed CBC Stat Lab 11/26/24 19:51 Completed Comprehensive Metabolic Panel Stat Lab 11/26/24 19:51 Completed Partial Thromboplastin Time Stat Lab 11/26/24 19:51 Completed Prothrombin Time with INR Stat Lab 11/26/24 19:51 Completed UA, C/S IF [Urinalysis, C/S if Indicated] Stat Lab 11/26/24 19:51 Completed Urine Culture Stat Lab 11/26/24 19:51 Received cephALEXin [Keflex] Med 11/26/24 20:44 Discontinued 500 mg PO X1 ONE Vital Signs Vital signs: Vital Signs Temperature 98.1 F 11/26/24 18:53 Pulse Rate 64 11/26/24 18:53 Respiratory Rate 18 11/26/24 18:53 Blood Pressure 128/58 L 11/26/24 18:53 Pulse Oximetry (%) 99 11/26/24 18:53 Oxygen Delivery Method Room Air 11/26/24 18:53 MDM Patient data External records reviewed:: None Clinical information provided by:: patient and family Social determinants that could affect healthcare access:: none Patient has the following chronic illnesses:: History of anemia, on chronic Santana catheter How is presenting disease/condition affected by chronic disease/condition?: exacerbated by Evaluation data The following diagnostics were reviewed and interpreted by me:: lab results, radiology exam(s) and EKG tracing(s) Lab and/or radiology exams considered but not ordered:: None Interpretation Summary: EKG sinus rhythm, ventricular rate of 65 bpm, no ST segment elevation depression noted. As interpreted by me. Hemoglobin was noted to be 8.8 hematocrit 27.9 platelets is normal urinalysis positive for UTI the rest of the labs unremarkable. X-ray of the pelvis came back with no acute fracture dislocation noted. X-ray of the lumbar spine came back with no acute fracture or dislocation noted. Medications Medications considered but not ordered:: None Medication administrations:: Medication Administration History Discontinued Medications Cephalexin HCl (Cephalexin 250 Mg Capsule) 500 mg PO X1 ONE Stop: 11/26/24 20:45 Last Admin: 11/26/24 20:52 Dose: 500 mg Documented By: SCOOTER Salguero Consultations Consultation(s) initiated? (list below): No Diagnosis Differential Diagnosis ED Complaint MDM: Anemia, UTI, generalized body weakness Most likely diagnosis given after review of the tests above:: Anemia, UTI Admission Indicated Admission indicated?: not indicated Explain why admission is indicated or not indicated:: Stable Admission Request Was there a request for admission?: No Disposition Plan Disposition Plan: Discharge Discharge Attestation Discharge Attestation: The patient and all family members were given an opportunity to ask questions and understood the discharge instructions. Discharge instructions specifically effects, indications for sooner follow up or return to the emergency department, and the expected course of current diagnosis. Patient condition: Stable Medical Decision Making MDM Narrative MDM Narrative: 89-year-old female patient was brought to us by EMS from home for evaluation regarding generalized body weakness. According to the patient patient came in because he needed a blood transfusion. Patient is alert and oriented x 3, and denies any complaints. Patient's hemoglobin was noted to be 8.8. Patient does not need blood transfusion today. Patient urinalysis showed mild UTI. Patient was given antibiotic. Patient stable for discharge home. Differential Diagnosis Differential Diagnosis: Anemia, UTI, generalized body weakness Lab Data 11/26/24 19:51 11/26/24 19:51 Labs: Lab Results 11/26/24 Range/Units 19:51 WBC 6.3 (3.6-11.0) Thou/mm3 RBC 2.84 L (4.00-5.20) Miln/mm3 Hgb 8.8 L (12.0-16.0) g/dL Hct 27.9 L (36.0-46.0) % MCV 98 (80-100) fL MCH 31.0 (25.0-35.0) pg MCHC 31.5 (31.0-37.0) g/dl RDW Std Deviation 62.5 H (36.4-46.3) fL Plt Count 294 D (140-440) Thou/mm3 Neut % (Auto) 57 (37-80) % Lymph % (Auto) 23 (10-50) % [place]ala % (Auto) 7 (0-12) % Eos % (Auto) 10 (0-10) % Baso % (Auto) 1 (0-2.5) % Neut # (Auto) 3.6 (1.8-7.7) Thou/mm3 Lymph # (Auto) 1.4 (1.0-4.8) Thou/mm3 [place]ala # (Auto) 0.5 (0.0-0.8) Thou/mm3 Eos # (Auto) 0.6 H (0.0-0.5) Thou/mm3 Baso # (Auto) 0.0 (0.0-0.2) Thou/mm3 Immature Gran # (Auto) 0.15 H (0.00-0.00) Thou/mm3 Absolute Nucleated RBC 0.00 (0.00-0.00) Thou/mm3 Immature Gran % 2 H (0-0) % Nucleated RBC % 0 (0) /100 WBC PT 11.4 (9.0-12.2) Seconds INR 1.0 (0.9-1.3) APTT 21.3 L (22.0-36.0) Seconds Sodium 145 (136-145) mMol/L Potassium 5.0 (3.4-5.1) mMol/L Chloride 114 H (98-107) mMol/L Carbon Dioxide 21.9 (20.0-31.0) mMol/L Anion Gap 9 (7-16) BUN 42 H (9-23) mg/dL Creatinine 1.2 (0.6-1.3) mg/dL Estim Creat Clear Calc 22.8 L (>60) mL/min eGFR 43 L (60 - ) See Note BUN/Creatinine Ratio 35 H (12-20) Ratio Glucose 93 (74-106) mg/dL Calculated Osmolality 299 H (275-295) Calcium 8.8 (8.3-10.6) mg/dL Corrected Calcium 9.1 (8.5-10.1) mg/dL Total Bilirubin 0.5 (0.3-1.2) mg/dL AST 85 H (0-34) U/L ALT < 7 L (10-49) U/L Alkaline Phosphatase 191 H (46-116) U/L Total Protein 5.7 (5.7-8.2) gm/dL Albumin 3.6 (3.4-4.8) gm/dL Globulin 2.1 L (2.3-3.5) gm/dL Albumin/Globulin Ratio 1.7 (1.2-2.2) Ur Collection Type Clean Catch Urine Color Lt-Yellow (Lt Yel-Yel) Urine Clarity Clear (Clear/Hazy) Urine pH 6.0 (5.0-7.0) Ur Specific [place] 1.016 (1.001-1.035) Urine Protein Trace (Neg - Trace) Urine Glucose (UA) Negative (Negative) Urine Ketones Negative (Negative) Urine Blood Negative (Negative) Urine Nitrite Positive (Negative) Urine Bilirubin Negative (Negative) Urine Urobilinogen (Auto) Negative (0.0-1.0) mg/dL Ur Leukocyte Esterase Positive (Negative) Urine RBC 7 H (0-3) /hpf Urine WBC 38 H (0-5) /hpf Ur Squamous Epith Cells 0 (0-5) /hpf Urine Bacteria Rare (None) Ur Culture Indicated? Yes Discharge Plan Plan Patient Disposition: HOME (Self Care) Disposition Comment: stable Prescriptions/Referrals Prescriptions/Med Rec: New cefuroxime axetil 500 mg tablet 500 mg PO BID Qty: 14 0RF No Action amlodipine 5 mg Tablet 5 mg PO BID pantoprazole 40 mg tablet,delayed release (DR/EC) 40 mg PO QDAY atorvastatin 80 mg tablet 80 mg PO HS Qty: 90 0RF ferrous sulfate 220 mg (44 mg iron)/5 mL elixir 220 mg PO BID Patient Comments: TAKE 5 ML BY MOUTH TWICE DAILY calcitriol 0.25 mcg capsule See Rx Instructions .ROUTE .COMPLEX Patient Comments: TAKE 1 CAPSULE BY MOUTH 3 TIMES WEEKLY Rx Instructions: 0.25 mcg orally, take one capsule by mouth 3 times weekly sodium bicarbonate 325 mg tablet 325 mg PO QDAY Patient Comments: TAKE 1 TABLET BY MOUTH DAILY aspirin 81 mg tablet,delayed release (DR/EC) 81 mg PO QDAY Patient Comments: TAKE 1 TABLET BY MOUTH DAILY bisacodyl [Dulcolax (bisacodyl)] 5 mg Tablet,Delayed Release (Dr/Ec) 5 mg PO Q72H Edarbi 80 mg tablet 80 mg PO QDAY clopidogrel 75 mg tablet 75 mg PO HS hydrochlorothiazide 25 mg tablet 25 mg PO DAILY Qty: 30 0RF Patient Comments: TAKE 1 TABLET BY MOUTH TWICE DAILY amoxicillin-pot clavulanate [Augmentin] 500-125 mg tablet 1 tab PO BID Qty: 10 0RF Referrals: Flavio August MD [Primary Care Provider] - In 1 week Problem List Clinical Impression: Urinary tract infection, Anemia Patient/Caregiver Discharge Instructions Discharge Activity: activity as tolerated Education Materials: Anemia Additional Instructions: Thank you for the opportunity for serving you today. You are stable for discharged . You are advised to: Follow-up with your PCP in 1 to 2 days Return to ED for worsening of symptoms Increase oral fluids Take medication as prescribed Hemoglobin today was noted to be 8.8, at this time you do not need blood transfusion. Print Language: Sammarinese Stand Alone Forms: Lety Award Info., Patient Portal Info Letter PA/ALUMINUM BOAT INSPECTOR Supervising Physician PA/ALUMINUM BOAT INSPECTOR Supervising Physician: MD Ivy
--- NOTE | 2024-11-26 19:38 | EKG_ITS ---
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
--- NOTE | 2024-11-26 19:58 | PC.NURSE ---
Pt arrived with urostomy present on RLQ. Stoma is red, moist, surrounding skin in tact. Drainage present in sifuentes bag.
[2024-11-26 20:06] LABS: Collection Type, Urine Clean Catch; Squamous Epithelial Cell,Urine 0 /hpf (0-5)
[2024-11-26 20:11] LABS: Basophils % (Auto) 1 % (0-2.5); Eosinophils # (Auto) 0.6 Thou/mm3 (0.0-0.5); Eosinophils % (Auto) 10 % (0-10); Hematocrit 27.9 % (36.0-46.0); Immature Granulocytes % (Auto) 2 % (0-0); Immature Granulocytes Auto 0.15 Thou/mm3 (0.00-0.00); Lymphocytes # (Auto) 1.4 Thou/mm3 (1.0-4.8); Lymphocytes % (Auto) 23 % (10-50); Mean Corpuscular HGB Conc 31.5 g/dl (31.0-37.0); Mean Corpuscular Volume 98 fL (80-100); Monocytes # (Auto) 0.5 Thou/mm3 (0.0-0.8); Monocytes % (Auto) 7 % (0-12); Neutrophils # (Auto) 3.6 Thou/mm3 (1.8-7.7); Neutrophils % (Auto) 57 % (37-80); Nucleated Red Blood Cell % 0 /100 WBC (0); Platelet Count 294 Thou/mm3 (140-440); RDW Standard Deviation 62.5 fL (36.4-46.3); Red Blood Count 2.84 Miln/mm3 (4.00-5.20); White Blood Count 6.3 Thou/mm3 (3.6-11.0)
[2024-11-26 20:15] LABS: Hemoglobin 8.8 g/dL (12.0-16.0)
[2024-11-26 20:28] LABS: Bacteria,Urine Rare; Bilirubin,Urine Negative (Negative); Blood,Urine Negative (Negative); Clarity,Urine Clear (Clear/Hazy); Color,Urine Lt-Yellow (Lt Yel-Yel); Glucose, Urine Negative (Negative); Ketones,Urine Negative (Negative); Leukocyte Esterase,Urine Positive (Negative); Nitrite,Urine Positive (Negative); Protein,Urine Trace (Neg - Trace); RBC,Urine 7 /hpf (0-3); Specific Gravity,Urine 1.016 (1.001-1.035); Urobilinogen,Urine Negative mg/dL (0.0-1.0); WBC,Urine 38 /hpf (0-5)
[2024-11-26 20:30] LABS: Alanine Aminotransferase < 7 U/L (10-49); Albumin, Serum 3.6 gm/dL (3.4-4.8); Albumin/Globulin Ratio 1.7 (1.2-2.2); Alkaline Phosphatase 191 U/L (46-116); Anion Gap 9 (7-16); Aspartate Amino Transferase 85 U/L (0-34); BUN/Creatinine Ratio 35 Ratio (12-20); Bilirubin,Total 0.5 mg/dL (0.3-1.2); Blood Urea Nitrogen 42 mg/dL (9-23); Calcium 8.8 mg/dL (8.3-10.6); Calcium (Corrected) 9.1 mg/dL (8.5-10.1); Carbon Dioxide 21.9 mMol/L (20.0-31.0); Chloride 114 mMol/L (98-107); Creatinine (Component) 1.2 mg/dL (0.6-1.3); Estimated Creatinine Clearance 22.8 mL/min (>60); Globulin 2.1 gm/dL (2.3-3.5); Glucose 93 mg/dL (74-106); Osmolality,Calculated 299 (275-295); Partial Thromboplastin Time 21.3 Seconds (22.0-36.0); Prothrombin Time 11.4 Seconds (9.0-12.2); Sodium 145 mMol/L (136-145); Total Protein 5.7 gm/dL (5.7-8.2); eGFR 43 See Note
[2024-11-26 20:33] LABS: Culture Indicated,Urine Yes
--- NOTE | 2024-11-26 20:44 | XR_ITS ---
Examination: AP pelvis single view Technique: AP portable pelvis single view Exam date and time: November 26, 2024 2105 hrs. Indications: Patient fell today with injury of the pelvis, pelvic pain. Findings: Underpenetrated film No gross hip fracture Bones of the pelvis appear grossly intact Subtle sclerotic areas particularly in the inferior pubic rami and ischial regions Impression: Limited study No acute hip or pelvic fracture Suspicious for osteoblastic metastases Consider CT scan pelvis without contrast follow-up
--- NOTE | 2024-11-26 20:44 | XR_ITS ---
Examination: Lumbar spine 2 views Technique one AP lateral lumbar spine 2 views Exam date and time: November 26, 2024 2115 hrs. Indications: Patient fell yesterday with injury to lower back, lower back pain Findings: Severe osteopenia Sclerotic T11 and T12 vertebral bodies There is no true lateral view of the lumbar spine Impression: Nondiagnostic study Recommend follow-up true lateral view of the lumbar spine
[2024-11-26] MEDS: cephALEXin 250 MG CAPSULE 500 MG PO (20:52)
[2024-11-26 21:00] VITALS: BP 124/56; PULSE 61; RESP 18; TEMP 36.6; O2SAT 96
[2024-11-26 22:08] VITALS: BP 117/46; PULSE 68; RESP 16; O2SAT 96
== END 2024-11-26 22:24 | disposition home or self-care (01) ==
PROVIDERS: Nurse Practitioner Family; Emergency Provider Emergency Medicine; PCP Internal Medicine
DX: N39.0 Urinary tract infection, site not specified (principal); D64.9 Anemia, unspecified; I44.0 Atrioventricular block, first degree; I44.7 Left bundle-branch block, unspecified; S39.93XA Unspecified injury of pelvis, initial encounter; S39.92XA Unspecified injury of lower back, initial encounter; W19.XXXA Unspecified fall, initial encounter; I11.0 Hypertensive heart disease with heart failure; I50.9 Heart failure, unspecified; Z95.5 Presence of coronary angioplasty implant and graft; Z95.0 Presence of cardiac pacemaker; Z96.0 Presence of urogenital implants
CPT/HCPCS: 36415; 72100; 72170; 80053; 81001; 85025; 85610; 85730; 87077; 87086; 87186; 93005; 99283; A9270

== ENCOUNTER 2024-12-01 13:28 | Emergency (ER) | payer MEDICARE, SELFPAY ==
[2024-12-01 13:28] VITALS: BMI 21.6
[2024-12-01 14:24] VITALS: BP 133/61; PULSE 59; RESP 16; TEMP 36.4; O2SAT 99
--- NOTE | 2024-12-01 14:44 | EDNOTE_ITS ---
ED Fall Injury RME/HPI General Chief Complaint: Fall Stated Complaint: fall Time Seen by Provider: 12/01/24 14:00 Source: patient Arrival date/time: 12/01/24 13:28 This is a 89-year-old female who presents to the emergency department accompanied with granddaughter for complaints of generalized body pain. According to the granddaughter the patient had a fall approximately 7 days ago in which she was already evaluated in the emergency department. Reports that recently has been diagnosed with bone cancer. Granddaughter is wanting a upper chest x-ray to rule out any rib fractures. Patient granddaughter states she will address her lung cancer diagnosis with her PCP. Patient is awake and alert no distress. Denies shortness of breath, chest pain Mode of arrival: ambulatory Related Data Home Medications ?Medication ?Instructions ?Recorded ?Confirmed amlodipine 5 mg tablet 5 mg PO BID 10/28/23 11/06/24 pantoprazole 40 mg tablet,delayed 40 mg PO QDAY 10/28/23 04/15/24 release calcitriol 0.25 mcg capsule See Rx Instructions .Route .COMPLEX 04/15/24 11/06/24 ferrous sulfate 220 mg (44 mg 220 mg PO BID 04/15/24 04/15/24 iron)/5 mL oral elixir aspirin 81 mg tablet,delayed 81 mg PO QDAY 11/06/24 11/06/24 release azilsartan medoxomil 80 mg tablet 80 mg PO QDAY 11/06/24 11/06/24 (Edarbi) bisacodyl 5 mg tablet,delayed 5 mg PO Q72H 11/06/24 11/06/24 release (Dulcolax (bisacodyl)) clopidogrel 75 mg tablet 75 mg PO HS 11/06/24 11/06/24 sodium bicarbonate 325 mg tablet 325 mg PO QDAY 11/06/24 11/06/24 Previous Rx's ?Medication ?Instructions ?Recorded atorvastatin 80 mg tablet 80 mg PO HS #90 tabs 08/08/23 amoxicillin 500 mg-potassium 1 tab PO BID #10 tabs 11/06/24 clavulanate 125 mg tablet (Augmentin) hydrochlorothiazide 25 mg tablet 25 mg PO DAILY #30 tabs 11/06/24 cefuroxime axetil 500 mg tablet 500 mg PO BID #14 tabs 11/26/24 Allergies Allergy/AdvReac Type Severity Reaction Status Date / Time No Known Allergies Allergy Verified 10/05/24 18:42 Review of Systems Review of Systems Systems Reviewed: All systems reviewed, normal except as documented Narrative Review of Systems: Gen: No fever, no chills, no weight loss EYES: No discharge, no visual changes, no pain HEENT: No ear pain, no congestion, no sore throat PULM: No shortness of breath, no cough, no congestion CV: No chest pain, no dyspnea on exertion, no palpitations GI: No nausea, no vomiting, no diarrhea, no pain, no constipation : No frequency, no urgency,? no dysuria Musc/skel: No joint pain, denies body pain Skin: No rash? ED Exam Narrative Physical exam: General: Sittiing in Exam table in no acute distress, answering questions appropriately HENT: normocephalic, atraumatic, EOMI, PERRLA, moist mucous membranes Chest: chest wall is nontender Cardiac: regular rate and rhythm, normal S1 and S2, no murmurs, rubs, or gallops, capillary refill ?2 seconds Pulmonary: clear to auscultation bilaterally, no wheezing, crackles, or rhonchi Abdominal: active bowel sounds, soft, nontender, nondistended Neuro: A&OX3, CN II-XII intact, sensation grossly intact bilaterally in UE and LE. Skin: no rashes, no ecchymosis Ext: no lower extremity edema Course Quality Measures none Orders Category Date Time Status XR ribs BI min 4V w CXR1V Stat Exams 12/01/24 14:42 Completed XR thoracic spine 2V Stat Exams 12/01/24 14:42 Completed Vital Signs Vital signs: Vital Signs Temperature 97.6 F 12/01/24 14:24 Pulse Rate 59 L 12/01/24 14:24 Respiratory Rate 16 12/01/24 14:24 Blood Pressure 133/61 H 12/01/24 14:24 Pulse Oximetry (%) 99 12/01/24 14:24 Oxygen Delivery Method Room Air 12/01/24 14:24 Fall MDM Narrative MDM Narrative:: This is an 89-year-old female history of CHF, CKD, hypertension, recent diagnosis of bone CA metastatic disease. Was brought in by granddaughter for an x-ray for upper back pain status post fall over 1 week ago. Granddaughter requesting to evaluate for rib fractures. And is awake and alert comfortable no hypoxia no respiratory distress no chest pain. I did go ahead and obtained an x-ray of her chest which demonstrates no acute fractures however does demonstrate large pleural effusion.. According to the daughter the patient has CHF and has recurrent effusions. She has a follow- up appointment with her PCP on this issue and to speak about her bone metastasis and possible palliative care. Granddaughter feels comfortable taking patient home oxygenating fine 99% no distress patient comfortable Pain medication offered. Strict ER precautions given Patient data External records reviewed:: [facility] previous records Clinical information provided by:: patient Social determinants that could affect healthcare access:: none Patient has the following chronic illnesses:: none How is presenting disease/condition affected by chronic disease/condition?: no chronic disease Evaluation data The following diagnostics were reviewed and interpreted by me:: radiology exam(s) Lab and/or radiology exams considered but not ordered:: none Interpretation Summary: Examination: Ribs, bilateral, with PA chest, 4 views Technique: Chest PA, RIBS AP, RPO, LPO, 4 views Exam date and time: December 01, 2024 1507 hours Comparison December 01, 2024 INDICATIONS: Patient fell last week with injury to right and left chest, bilateral rib pain Findings: Mild enlargement cardiac contour Cardiac leads satisfactory position Moderate vascular congestion Pneumonia right base Large right mild left pleural effusions Widespread blastic areas involving bilateral ribs No acute displaced rib fractures IMPRESSION: Mild heart failure Pneumonia right base Large right mild left pleural effusions Widespread osteoblastic metastatic disease, 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 Examination: Thoracic spine 2 views TECHNIQUE: AP lateral 2 views Exam date and time: December 01, 2024 1532 hours INDICATIONS: Patient fell last week with injury to the spine, spine pain FINDINGS: Diffuse abnormal sclerosis throughout the thoracic vertebral bodies Wedging of lower dorsal vertebral bodies, age indeterminate Of the thoracic aortic calcification IMPRESSION: Suspicious for osteoblastic metastatic disease Recommend CT scan thoracic spine follow-up to assess acuity of compressions of multiple lower dorsal vertebral bodies Medications / Prescriptions Medications or Prescriptions considered but not ordered:: none Medication administrations:: none Consultations Consultation(s) initiated? (list below): No Diagnosis Fall Differential Diagnosis: compression fracture and other (Bone Pain, rib fractures, pleural effusion, pneumonia) Most likely diagnosis given after review of the tests above:: Pleural effusion Admission Indicated Admission indicated?: not indicated Explain why admission is indicated or not indicated:: none Admission Request Was there a request for admission?: No Disposition Plan Disposition Plan: Discharge Discharge Attestation Discharge Attestation: The patient and all family members were given an opportunity to ask questions and understood the discharge instructions. Discharge instructions specifically effects, indications for sooner follow up or return to the emergency department, and the expected course of current diagnosis. Patient condition: Stable Discharge Plan Plan Patient Disposition: HOME (Self Care) Patient condition on transfer: Stable Prescriptions/Referrals Prescriptions/Med Rec: No Action amlodipine 5 mg Tablet 5 mg PO BID pantoprazole 40 mg tablet,delayed release (DR/EC) 40 mg PO QDAY atorvastatin 80 mg tablet 80 mg PO HS Qty: 90 0RF ferrous sulfate 220 mg (44 mg iron)/5 mL elixir 220 mg PO BID Patient Comments: TAKE 5 ML BY MOUTH TWICE DAILY calcitriol 0.25 mcg capsule See Rx Instructions .ROUTE .COMPLEX Patient Comments: TAKE 1 CAPSULE BY MOUTH 3 TIMES WEEKLY Rx Instructions: 0.25 mcg orally, take one capsule by mouth 3 times weekly sodium bicarbonate 325 mg tablet 325 mg PO QDAY Patient Comments: TAKE 1 TABLET BY MOUTH DAILY aspirin 81 mg tablet,delayed release (DR/EC) 81 mg PO QDAY Patient Comments: TAKE 1 TABLET BY MOUTH DAILY bisacodyl [Dulcolax (bisacodyl)] 5 mg Tablet,Delayed Release (Dr/Ec) 5 mg PO Q72H Edarbi 80 mg tablet 80 mg PO QDAY clopidogrel 75 mg tablet 75 mg PO HS hydrochlorothiazide 25 mg tablet 25 mg PO DAILY Qty: 30 0RF Patient Comments: TAKE 1 TABLET BY MOUTH TWICE DAILY amoxicillin-pot clavulanate [Augmentin] 500-125 mg tablet 1 tab PO BID Qty: 10 0RF cefuroxime axetil 500 mg tablet 500 mg PO BID Qty: 14 0RF Referrals: Flavio August MD [Primary Care Provider] - In 1 week Problem List Clinical Impression: Bone pain, Pleural effusion Patient/Caregiver Discharge Instructions Discharge Activity: activity as tolerated Education Materials: ED Chronic Pain, ED Pleural Effusion Additional Instructions: -As discussed please follow-up with your doctor this upcoming week -Can take [id number] Tylenol for pain. If you experience any shortness of breath chest pain worsening symptoms fever please return to the emergency department as soon as possible. Print Language: Greek Stand Alone Forms: Lety Hanks Info., Patient Portal Info Letter PA/PATTERN HANGER Supervising Physician PA/PATTERN HANGER Supervising Physician: Dr Brambila
== END 2024-12-01 17:42 | disposition home or self-care (01) ==
PROVIDERS: Emergency Provider Emergency Medicine; PCP Internal Medicine
DX: S29.9XXA Unspecified injury of thorax, initial encounter (principal); J18.9 Pneumonia, unspecified organism; C79.51 Secondary malignant neoplasm of bone; I13.0 Hypertensive heart and chronic kidney disease with heart failure and stage 1 through stage 4 chronic kidney disease, or unspecified chronic kidney disease; N18.9 Chronic kidney disease, unspecified; C34.90 Malignant neoplasm of unspecified part of unspecified bronchus or lung; I50.9 Heart failure, unspecified; W19.XXXA Unspecified fall, initial encounter
CPT/HCPCS: 71111; 72070; 99283

== ENCOUNTER 2024-12-24 13:34 | Outpatient (RCR) | payer MEDICARE, BC, SELFPAY ==
--- NOTE | 2024-12-24 14:42 | CTCCONSULT_ITS ---
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 Flavio August MD Reason for consultation. 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 Patient was subsequently had surgery mastectomy but did not get any follow-up cancer care. After recent fall patient went to ER and CT scan showed widespread osteoblastic bone mets. Patient in pain was interested in being referred to hospice. Patient is cared by her nephew and niece Dev Fabian and Michelle Early Past Medical History: History of ileostomy following surgery for bladder cancer 2013 hypertension anemia Meds. Iron amlodipine Edarbi atorvastatin sodium bicarbonate Plavix Allergies none to meds Social History: Patient lives at home with nephew and niece helping care for her. Review of Systems: Has had weight loss has been spearing seeing back and feet pain Physical Exam: General: Tired appearing lady some distress due to back and feet pain HEENT: Atraumatic normocephalic extraocular is intact no oral lesion no cervical or supraclavicular adenopathy. CV: Right breast surgically absent chest good auscultation heart regular rate and rhythm ABD: Soft no organomegaly or tenderness urostomy noted EXT: No signs of clubbing or edema Assessment 1.: Patient with history of stage I right breast CA had no adjuvant therapy after mastectomy 7 years ago. 2.Clear has a recurrence widespread mets possible lung mets noted on recent scans. 3. Patient likely has only a few months to live and is interested in hospice for comfort measures. Will contact hospice and inform Dr. August the primary care physician. Cc: Flavio August MD Electronically signed by: Peña Tanner MD, DABR 12/24/2024 2:39 PM
== END 2025-01-01 23:59 | disposition home or self-care (01) ==
LOC: SCTC 13:34
PROVIDERS: PCP Internal Medicine; Referring Provider Internal Medicine; Visit Provider Radiology Therapeutic Radiology
DX: C50.811 Malignant neoplasm of overlapping sites of right female breast (principal); C79.51 Secondary malignant neoplasm of bone; Z17.421 Hormone receptor negative with human epidermal growth factor receptor 2 negative status; Z90.11 Acquired absence of right breast and nipple
CPT/HCPCS: 99213; G0463